=== PATIENT | male | born 1985 | race Caucasian/White ===

== ENCOUNTER 2018-04-25 08:51 | Outpatient (CLI) | payer MEDICAID ==
--- NOTE | 2018-04-25 09:30 | RAD ---
FOUR VIEWS RIGHT KNEE: Comparison: None. History: Right knee pain. FINDINGS: Four views of the right knee shows no evidence of acute fracture or dislocation. No knee effusion is seen. No degenerative changes are present. IMPRESSION: No evidence of acute osseous abnormality. POS: CET
--- NOTE | 2018-04-25 09:31 | RAD ---
THREE VIEWS LEFT ANKLE: Comparison: 07-27-14 History: Left ankle pain. FINDINGS: Three views of the left ankle shows no evidence of acute fracture or dislocation. No degenerative cielo nges are seen. No soft tissue swelling is present. IMPRESSION: No evidence of acute osseous abnormality. POS: CET
== END 2018-04-25 08:52 | disposition home or self-care (01) ==
LOC: RAD-FRANK 08:51
PROVIDERS: ATTEND Internal Medicine
DX: S99.912A Unspecified injury of left ankle, initial encounter (principal); M25.561 Pain in right knee